=== PATIENT | female | born 1955 | race African-American/Black ===

== ENCOUNTER 2017-09-30 15:47 | Inpatient (IN) | payer MEDICAID, MEDICARE ==
[~2017-09-30 15:47] MED LIST: ISOVUE-370 76%-LOCM 1 ML ONE
--- NOTE | 2017-09-30 17:32 | RAD ---
PA AND LATERAL CHEST X-RAY 09/30/17 HISTORY: Cough since Chi. COMPARISON: None available. FINDINGS: There are suggestion of pulmonary nodules scattered within the lungs bilaterally, more numerous on th e left. There is also patchy parenchymal air space opacity in the posterior aspect of the left upper lobe. Findings may be related to atypical infectious process, but neoplastic process related to metas tatic disease is a possibility. There is prominence of the right hilar structures and trachea is also deviated to the right. Lymphadenopathy or mass in the right hilar region cannot be excluded. The roberto ology for deviation of the trachea is uncertain although mediastinal mass is a possibility. Thoracic aorta is ectatic. There is question of atelectasis left lung base with questionable tiny left pleural effusion. Degenerative changes are noted in the spine. IMPRESSION: 1. Bilateral nodular densities more numerous on the left with associated patchy parenchymal air space opacities and interstitial densities on the left predominantly in the left upper lobe. Findings could be related to atypical infectious process, but neoplastic process and metastatic disease is a consideration. 2. Deviation of the trachea to the right. There is also prominence of the right hilar structures . Mediastinal mass is a possibility, and nodular prominence of the right hilar region also could be r elated to either mass or lymphadenopathy. 3. CT scan thorax is recommended for further evaluation. POS: SUKHDEEP
[2017-09-30 18:46] LABS: Hemoglobin 11.7 g/dL (12.0-16.0); Mean Corpuscular HGB CONC 31.5 g/dL (32.0-36.0); Mean Corpuscular Hemoglobin 21.6 pg (27.0-31.0); Mean Corpuscular Volume 68.6 fl (81.0-99.0); Mean Platelet Volume 8.4 fL (7.4-10.4); Platelet Count 291 thou/uL (130-400); RBC Distribution Width 14.1 % (11.5-14.5); Red Blood Cell (RBC) Count 5.42 mill/uL (4.20-5.40); White Blood Cell (WBC) Count 5.7 thou/uL (4.8-10.8)
[2017-09-30 19:06] LABS: ALT (SGPT) 12 U/L (8-55); AST (SGOT) 15 U/L (5-34); Albumin 4.2 g/dL (3.4-4.8); Alkaline Phosphatase 77 U/L (40-150); Anion Gap 13 mmol/L (10-20); BUN (Urea Nitrogen) 15 mg/dL (9.8-20.1); Bilirubin, Total 0.2 mg/dL (0.2-1.2); Calc. Creatinine Clearance 0 mL/min (70-130); Calcium 9.9 mg/dL (7.8-10.44); Carbon Dioxide 23 mmol/L (23-31); Chloride 106 mmol/L (98-107); Estimated GFR-MDRD 83; Globulin 4.4 g/dL (2.4-3.5); Glucose 79 mg/dL (80-115); Potassium 4.6 mmol/L (3.5-5.1); Protein, Total 8.6 g/dL (6.0-8.3); Sodium 137 mmol/L (136-145)
[2017-09-30 19:12] LABS: INR-International Normal Ratio 1.1; Prothrombin Time 14.6 SEC (12.0-14.7)
[2017-09-30 19:13] LABS: PTT 29.8 SEC (22.9-36.1)
[2017-09-30 19:26] LABS: #Basophils 0.1 thou/uL (0.0-0.2); #Eosinphils 0.4 thou/uL (0.0-0.7); #Lymphocytes 2.2 thou/uL (1.20-3.40); #Monocytes 0.9 thou/uL (0.11-0.59); #Neutrophils 2.2 thou/uL (1.40-6.50); %Basophils 0.9 % (0.0-1.0); %Eosinophils 6.6 % (0.0-10.0); %Lymphocytes 39.3 % (21.0-51.0); %Monocytes 14.9 % (0.0-10.0); %Neutrophils 38.2 % (42.0-75.0); Hypochromia SLIGHT = 6-15 cells (100X) (0-5/hpf); MDiff Complete? YES; Microcytosis SLIGHT = 6-15 cells (100X) (0-5/hpf); PLT Morphology Comment Appears Adequate
[2017-09-30 19:58] LABS: Bilirubin Negative (Negative); Blood, Urine Negative (Negative); Clarity CLOUDY (Clear); Glucose, Urine (Dipstick) Negative (Negative); Leukocyte Large (Negative); Nitrite Negative (Negative); Protein, Urine (Dipstick) Trace mg/dL (Neg-Trace); Specific Gravity, Urine 1.027 (1.002-1.036)
[2017-09-30] MEDS ORDERED: Lorazepam 2 MG/ML VIAL ONE ×2 (19:59→21:56)
[2017-09-30 20:00] LABS: Bacteria/HPF None Seen HPF (None Seen); Squamous Epithelial 0-3 HPF (0-3)
[2017-09-30 20:01] LABS: Pathc Cast-AUWi Flag 4.21 (0-2.49)
[2017-09-30 20:10] LABS: Hyaline Casts/LPF 0-3 HYALINE CAST LPF (0-3 Hyaline); Manual Microscopic Reviewed? No Path Casts Seen; RBC/HPF 0-3 HPF (0-3)
--- NOTE | 2017-09-30 23:04 | CT ---
CTA CHEST WITH 3D VOLUME RENDERIN09/30/17 CLINICAL HISTORY: Cough. Abnormal chest radiograph. FINDINGS: No definite filling defect or pulmonary arteries to indicate acute pulmonary embolus. There are numer ous nodular opacities throughout each lung with rounded morphology. Component of calcification is see n within portion of these nodules. There is additional ground glass and interstitial opacification of the lungs bilaterally. No evidence of significant effusion or discrete pneumothorax. Areas of mass-l ilene consolidation are also present which contain calcification. There is no acute osseous abnormality . The thoracic aorta is normal in caliber. There are numerous calcified lymph nodes. IMPRESSION: Numerous bilateral pulmonary nodules, many of which contain calcification, as well as mass-like areas of consolidation containing internal calcification. Additional scattered areas of ground glass and i nterstitial prominence are present involving each lung. Considerations would include atypical infecti on and/or pneumoconiosis, given multifocal calcification as well as calcifications of regional lymph nodes. Given the extensive nodularity, malignancy is not excluded. Recommend pulmonary medicine consu ltation for further assessment. No large, acute pulmonary embolus. POS: JAZIEL
--- NOTE | 2017-10-01 06:37 | HP ---
DATE OF ADMISSION: 09/30/2017 CHIEF COMPLAINT: Shortness of breath and cough. HISTORY OF PRESENT ILLNESS: This is a 62-year-old -[place] female. She is a resident of a [facility], has a history of severe mental retardation since childbirth. She has been suffering with some cough and congestion for the past 1-2 weeks which progressively got worsened for the last 2 days and the long-term called the patient's sister, explaining about the worsening symptoms of the cough and she was having low saturations and they have checked and they called the EMS and the patient was brought to the ER. Patient was having some diarrhea for the past 2 days and was so watery in consis tency and associated with some blood mixed in the diarrhea. She denied having any fever, but she had a severe cough with productive sputum. The patient's mental status got worsened because of this. T he patient was seen in the ER, she had a chest x-ray, which showed evidence of some multifocal pneumo haim with tree-in-bud appearance more in the apical areas of the lung which is suspicious for a possib le tuberculosis. The patient's sister had latent TB in the past, but this patient was never evaluate d for tuberculosis, so the QuantiFERON test was ordered by ER and patient has been kept under isolati on until proven otherwise. The patient is seen, she was alert but completely disoriented, but this w hich is not the baseline according to the patient's sister. Patient's son is her medical power of at [facility] who is not present at this time. After discussing about the patient's prognosis, the patient' s family wants to decide by talking among themselves regarding the code status. PAST MEDICAL HISTORY: 1. Hypertension. 2. Mental retardation. PAST SURGICAL HISTORY: None. SOCIAL HISTORY: The patient lives at a long-term. No history of smoking. No history of alcohol. No history of illicit drug use. FAMILY HISTORY: No significant family history of coronary artery disease or any cancers in the famil y. HOME MEDICATIONS: None. ALLERGIES: No known drug allergies. REVIEW OF SYSTEMS: Unable to obtain any review of systems because of the patient's mental status and baseline mental status being mentally retarded and most of the history is obtained from the patient' s sister at the bedside. PHYSICAL EXAMINATION: VITAL SIGNS: Blood pressure 130/88, heart rate is 80, respiratory rate is 20, saturation is 95% on r oom air. GENERAL: The patient is moderately built and moderately nourished. She does not appear to be in acu te distress at this time. She is alert, oriented x3. HEENT: Atraumatic, normocephalic. PERRLA. Extraocular movements were intact. CARDIOVASCULAR: S1, S2 normal. No murmurs, rubs, or gallops. LUNGS: Bilateral air entry was equal, but showed diffuse wheezing bilaterally with no accessory use of muscles of respiration at this time. ABDOMEN: Soft, nontender, no guarding, no rebound tenderness. Bowel sounds normal. MUSCULOSKELETAL: No calf tenderness. No pedal edema. No joint tenderness, no joint swelling. SKIN: No cyanosis, no edema, no rash, no pallor. CENTRAL NERVOUS SYSTEM: Could not be done at this time as the patient is not cooperative. PSYCHIATRIC: Cannot be done as the patient is not cooperative. LYMPHATIC: No evidence of any generalized lymph nodes were noted. LABORATORY AND DIAGNOSTIC DATA: Currently, the labs are not available as the [employer] is down, but b ased on my discussion with the ER physician and glance at the labs done in the ER, there is no any re markable elements that I could recollect at this time, but patient had evidence of urinary tract infe ction with a UA being positive. Chest x-ray was reviewed along with the ER physician and has been re viewed by me showed an evidence of multifocal pneumonia diffusely spread with tree-in-bud appearance suggestive of infectious etiology. ASSESSMENT: 1. Multifocal pneumonia. 2. Acute urinary tract infection. 3. Yjfxndyf-yg-nrirte dehydration. 4. Infectious gastroenteritis with colitis. 5. History of mental retardation. PLAN: 1. Plan is to closely monitor this patient. We will need to start the patient on IV antibiotics wit h levofloxacin and vancomycin at this time and the patient will be started on DuoNeb and albuterol ne bs. Pulmonology needs to be consulted for further evaluation of her pulmonary problem. 2. Patient has evidence of severe diarrhea. Need to do a C. diff toxin assay to rule out a C. diff infection. 3. Patient has evidence of acute UTI, which could also be contributing to her worsening mental statu s. We will continue to monitor evaluate for the urine cultures. The patient has severe dehydration. We will continue the patient on IV fluids at this time at 100 mL an hour and will closely monitor t he hydration status. The patient has severe mental retardation and will be a challenge in dietary ap proach. We will closely monitor and will consult nutrition. If the patient refuses feeds may need t o be tube fed with a consent from the family. 4. DVT prophylaxis with Lovenox. I spent 75 minutes with this patient.
[2017-10-01 06:42] VITALS: BMI 27.3
[2017-10-01] MEDS ORDERED: Prevnar 13-Val Conj/PF 0.5 ML SYRINGE IM ONE (06:45)
[2017-10-01] MEDS: Sodium Chloride 0.45% 1,000 ML IV SCH ×2 (09:24→10:19)
[2017-10-01] MEDS ORDERED: cefTRIAXone\\ROCEPHIN 1 GM in Sodium Chloride 0.9% 100 ML IVPB SCH (09:45)
--- NOTE | 2017-10-01 09:53 | PDOC.PN ---
- Subjective Encounter Start Date: 10/01/17 Encounter Start Time: 09:51 Subjective: no distress - Objective MAR Reviewed: Yes Vital Signs & Weight: Vital Signs (12 hours) Temp Pulse Resp BP Pulse Ox 10/01/17 07:49 98.1 F 89 18 130/82 91 L 10/01/17 06:34 97.5 F L 102 H 18 96 10/01/17 04:29 97.4 F L 94 22 H 135/65 94 L 10/01/17 02:45 97.5 F L 102 H 18 165/93 H 96 Weight Weight 190 lb 4 oz Result Diagrams: 09/30/17 18:34 09/30/17 18:34 Phys Exam - Physical Examination Neck: no JVD Respiratory: clear to auscultation bilateral Cardiovascular: RRR, no significant murmur Gastrointestinal: soft, positive bowel sounds Musculoskeletal: edema present Dx/Plan (1) Atypical pneumonia Code(s): J18.9 - PNEUMONIA, UNSPECIFIED ORGANISM Status: Acute (2) UTI (urinary tract infection) Status: Acute Qualifiers: Encounter type: initial encounter (3) HTN (hypertension) Code(s): I10 - ESSENTIAL (PRIMARY) HYPERTENSION Status: Chronic (4) Mental retardation Code(s): F79 - UNSPECIFIED INTELLECTUAL DISABILITIES Status: Chronic - Plan iv antibx pending blood/ urine C&S -: cont pulmonology * .
[2017-10-01] MEDS: Azithromycin 500 MG in Sodium Chloride 0.9% 250 ML 250 ML IVPB SCH (10:13)
--- NOTE | 2017-10-01 13:27 | CON ---
DATE OF CONSULTATION: 10/01/2017 The patient is a 62-year-old mentally challenged -French female who has been in a state home for many years since age 7. She was there for the last 40 or 50 years. The last 10 years according to the sister who was at the bedside states that she has been placed in group homes, initially she w as in [place]. Now, she is in a correction with 4 other people in [place]. There is a caretak er who is at the bedside who states that she sees a physician at [facility]. That is her primary care physician. She sees no other doctors. She has had a cough now for several days, worsening symptoms. They called the nurse who was in charge of the above issues who told her to come to the hospital wh ere an x-ray was taken. The patient is not able to give any history. She has not been talking since age 7. CAT scan performed including a chest x-ray shows numerous bilateral pulmonary nodules, some of them are calcified, mass-like consolidation with internal calcification. Pulmonary is consulted regarding the abnormal CT and chest x-ray. She has never smoked, never had any alcohol. As noted, she has been in the long-term state home judith age 7. PAST MEDICAL HISTORY: 1. Otherwise, as per the history given by the cyber ops planner is pertinent for mental retardation. 2. Aphasic 3. Diabetes. 4. Hypertension. PAST SURGICAL HISTORY: Hysterectomy. MEDICATIONS: Chronic medication from the long-term apparently includes none at this stage. ALLERGIES: Apparently unknown. REVIEW OF SYSTEMS: Otherwise, difficult to obtain. PHYSICAL EXAMINATION: GENERAL: Her sister is feeding the patient. The patient appears to be in no distress. VITAL SIGNS: Sats 94% on 2 liters, temperature 98, blood pressure 146/92. CHEST: Chest revealed rhonchi. CARDIAC: Normal S1, S2, no gallops. ABDOMEN: Soft, no masses. LABORATORY: White count 5000, H&H 9 and 37, platelet count is 291. Electrolytes are normal. IMPRESSION: 1. Abnormal x-ray, multiple bilateral calcified and noncalcified nodules, unknown significance. 2. Mental retardation since age 7. 3. Aphasic. PLAN: She was started antibiotics. At this time, the best option is to try and get more history an old x-rays from [facility] if possible. Family tells me she is a full code to my surprise. It is uncle ar if we will be able to get any sputum on her because of her mental status. She remains afebrile. We will try and get old x-ray reports if possible. This is a consultation note, 70 minutes, 50% spent in direct patient care.
[2017-10-01 17:10] LABS: Legionella Urinary Ag Negative (Negative)
[2017-10-01 17:11] LABS: Strep pneumo Urine Ag NEGATIVE (NEGATIVE)
[2017-10-01] MEDS: cefTRIAXone\\ROCEPHIN 1 GM, Syringe 0.4 ML in Sterile Water 9.6 ML SLOW IVP SCH (20:42)
--- NOTE | 2017-10-01 23:48 | CON ---
DATE OF CONSULTATION: 10/01/2017 REASON FOR CONSULTATION: Respiratory symptoms, abnormal chest radiology studies. HISTORY OF PRESENT ILLNESS: A 62-year-old with a history of mental retardation who is a resident at a custodial in [place] and reportedly has developed cough with congestion for the past 2 weeks with worsening, also had some diarrhea associated with the above symptoms, sometimes with blood. No reported fever, no reported aspiration. No evidence to suggest pain in any area. Apparently, another person in the custodial where she was stays developed some respiratory symptoms as well, this person apparently recently, this person was treated at [facility]. PAST MEDICAL HISTORY: Hypertension, mental retardation. SOCIAL HISTORY: alf resident. Never a smoker. FAMILY HISTORY: Noncontributory. HOME MEDICATIONS: None. Here, she is receiving ceftriaxone and azithromycin. ALLERGIES: NONE. PHYSICAL EXAMINATION: VITAL SIGNS: Have been normal. She has been afebrile, some elevation in systolic blood pressure. SKIN: Normal, no lymphadenopathy. HEENT: Ocular movements conjugate. Oral cavity with few remaining teeth was hard to examine because of problems with getting her to cooperate. She really has a hard time following commands, is unable to understand the spoken word, and does not establish eye contact. NECK: Supple, no jugular venous distention. LUNGS: With symmetric air entry with faint crackles at the bases. HEART: S1, S2, regular rate without murmurs. ABDOMEN: Soft, not distended or tender. No ascites. No bladder distention. EXTREMITIES: No joint inflammatory activity. No edema. Pulses 1+ in dorsalis pedis. Moves extremities equally. Does not establish eye contact. Does not follow commands. Does not interact with examiner. LABORATORY DATA: Hemoglobin 11.7, MCV 68, WBC count is 5.7, platelets 291, neutrophil percentage 38, lymphocytes 39%, 14% monocytes, 6% eosinophils. INR 1.1. Chemistry normal except for glucose 79. The serum total protein was 8.6, calcium 9.9, globulin 4.4. Urinalysis, greater than 50 wbc's. Serology negative for Legionella pneumophila and Strep pneumonia antigen. The CT of the chest showed multiple calcified pulmonary masses. Some of them are pleural based coalescent and plaques, some of them are more distributed in the inner portions of the lung parenchyma, right and left side, fairly symmetric distribution of the calcification appears to be located in central location of those masses. ASSESSMENT: 1. Respiratory symptoms. 2. Multiple pulmonary masses most of them with calcification. DISCUSSION: No prior radiology studies were found, I looked in [facility] record, the only thing she has there is a mammogram. The nature of the lung findings are suggestive of chronic area of involvement with calcification, which would suggest granulomatous pneumonitis. Malignancy is not completely ruled out, but typically calcification and malignant nodules are not centrally located. A lot of those masses or pleural based and coalescent and plaques and the possibility of asbestosis would be considered. Fungal or mycobacterial infection would be felt to be less likely, sarcoidosis, not ruled out, but felt to be less likely in the absence of lymphadenopathy and no other findings in the parenchymal area to suggest sarcoid changes. Vasculitis is unlikely; hamartomas are usually solitary. If no other radiological study has been done elsewhere previously to compare, then probably would require biopsy of those lesions for diagnostic purposes. [facility]
[2017-10-02] MEDS: Lorazepam 0.5 MG TAB PO PRN (02:27)
--- NOTE | 2017-10-02 09:51 | PDOC.PN ---
- Subjective Encounter Start Date: 10/02/17 Encounter Start Time: 09:49 Subjective: alert,nonverbal - Objective MAR Reviewed: Yes Vital Signs & Weight: Vital Signs (12 hours) Temp Pulse Resp BP Pulse Ox 10/02/17 07:38 97.4 F L 104 H 14 163/90 H 95 10/02/17 04:00 98.9 F 98 20 162/97 H 95 10/02/17 01:28 98.7 F 100 20 174/103 H 96 Weight Weight 190 lb 4 oz Result Diagrams: 09/30/17 18:34 09/30/17 18:34 Phys Exam - Physical Examination Constitutional: NAD Neck: no JVD Respiratory: clear to auscultation bilateral Cardiovascular: RRR, no significant murmur Gastrointestinal: soft, non-tender, positive bowel sounds Musculoskeletal: no edema Dx/Plan (1) Atypical pneumonia Code(s): J18.9 - PNEUMONIA, UNSPECIFIED ORGANISM Status: Acute (2) UTI (urinary tract infection) Status: Acute Qualifiers: Encounter type: initial encounter (3) HTN (hypertension) Code(s): I10 - ESSENTIAL (PRIMARY) HYPERTENSION Status: Chronic (4) Mental retardation Code(s): F79 - UNSPECIFIED INTELLECTUAL DISABILITIES Status: Chronic - Plan await C&S, cont iv antibx -: appreciate ID, Pulmonologt input- discuss plans * .
[2017-10-02] MEDS: Azithromycin 500 MG in Sodium Chloride 0.9% 250 ML 250 ML IVPB SCH (10:15)
[2017-10-02] MEDS ORDERED: Sodium Chloride 3% (15 ML) NEB NEB SCH (12:15)
--- NOTE | 2017-10-02 12:22 | PRG ---
DATE OF SERVICE: 10/02/2017 SUBJECTIVE: Hawa Fernández is a 62-year-old mentally challenged female, who appears to be in no dist ress. OBJECTIVE: VITAL SIGNS: She is afebrile. Pulse is 104, sats 90% on room air, respirations 14, blood pressure i s 176/90. CHEST: Minimal rhonchi. CARDIAC: Normal S1 and S2, no gallops. ABDOMEN: Soft, no masses. IMPRESSION: Bilateral pulmonary infiltrates. Nodules of unknown significance. More than likely, th is is supposed to be chronic, possibly some superimposed pneumonia, though I doubt it is TB or fungus . She is essentially afebrile. We are still trying to get old x-rays if possible from the closer hospital she has been admitted. Co ntinue antibiotics. Unless we are able to get old x-rays, we will be obliged to proceed with a bronchoscopy though I am t rying to avoid doing this if possible. We will follow.
[2017-10-02] MEDS: cefTRIAXone\\ROCEPHIN 1 GM, Syringe 0.4 ML in Sterile Water 9.6 ML SLOW IVP SCH (22:33)
[2017-10-03] MEDS: Azithromycin 500 MG in Sodium Chloride 0.9% 250 ML 250 ML IVPB SCH (09:00)
[2017-10-03] MEDS: Lorazepam 0.5 MG TAB PO PRN ×2 (09:19→21:37)
--- NOTE | 2017-10-03 11:49 | PDOC.PN ---
- Subjective Encounter Start Date: 10/03/17 Encounter Start Time: 11:46 Subjective: nonverbal - Objective MAR Reviewed: Yes Vital Signs & Weight: Vital Signs (12 hours) Temp Pulse Resp BP Pulse Ox 10/03/17 08:15 98.1 F 100 16 160/99 H 93 L 10/03/17 04:00 97.4 F L 85 16 158/94 H 91 L 10/03/17 00:00 97.7 F 86 20 156/91 H 96 Weight Weight 190 lb 4 oz Result Diagrams: 09/30/17 18:34 09/30/17 18:34 Phys Exam - Physical Examination Neck: no JVD grossly clear Cardiovascular: RRR, no significant murmur Gastrointestinal: soft, positive bowel sounds Musculoskeletal: no edema Dx/Plan (1) Atypical pneumonia Code(s): J18.9 - PNEUMONIA, UNSPECIFIED ORGANISM Status: Acute (2) UTI (urinary tract infection) Status: Acute Qualifiers: Encounter type: initial encounter (3) HTN (hypertension) Code(s): I10 - ESSENTIAL (PRIMARY) HYPERTENSION Status: Chronic (4) Mental retardation Code(s): F79 - UNSPECIFIED INTELLECTUAL DISABILITIES Status: Chronic - Plan cont antibx -: rpt cxr, cbc, cmp -: discuss with pulmonology * .
[2017-10-03 12:47] LABS: ALT (SGPT) 12 U/L (8-55); AST (SGOT) 15 U/L (5-34); Albumin 3.7 g/dL (3.4-4.8); Alkaline Phosphatase 71 U/L (40-150); Anion Gap 11 mmol/L (10-20); BUN (Urea Nitrogen) 8 mg/dL (9.8-20.1); Band 3 % (5-11); Bilirubin, Total 0.2 mg/dL (0.2-1.2); Calc. Creatinine Clearance 115 mL/min (70-130); Calcium 9.5 mg/dL (7.8-10.44); Carbon Dioxide 21 mmol/L (23-31); Chloride 108 mmol/L (98-107); Eosinophils 4 % (0-10); Estimated GFR-MDRD Greater than 90; Globulin 4.3 g/dL (2.4-3.5); Glucose 97 mg/dL (80-115); Hemoglobin 11.4 g/dL (12.0-16.0); Lymphocytes 33 % (21-51); MDiff Complete? YES; Mean Corpuscular HGB CONC 31.2 g/dL (32.0-36.0); Mean Corpuscular Hemoglobin 21.6 pg (27.0-31.0); Mean Corpuscular Volume 69.1 fl (81.0-99.0); Mean Platelet Volume 8.6 fL (7.4-10.4); Monocytes 7 % (0-10); Neutrophil 50 % (42-75); Platelet Count 288 thou/uL (130-400); Potassium 4.1 mmol/L (3.5-5.1); RBC Distribution Width 14.3 % (11.5-14.5); Red Blood Cell (RBC) Count 5.28 mill/uL (4.20-5.40); Sodium 136 mmol/L (136-145); White Blood Cell (WBC) Count 5.7 thou/uL (4.8-10.8)
--- NOTE | 2017-10-03 13:06 | RAD ---
SINGLE VIEW OF THE CHEST: INDICATION: History of pneumonia. COMPARISON: CTA dated 09/30/17. FINDINGS: The diffuse reticular nodularity and scattered confluent lung masses are largely stable. Cardiomegal y persists. Scarring and other chronic lung changes are similar. No pleural effusion or pneumothora x is evident. Chronic osseous change is similar. IMPRESSION: Stable exam. POS: JAZIEL
--- NOTE | 2017-10-03 19:05 | PRG ---
DATE OF SERVICE: 10/03/2017 SUBJECTIVE: Hawa Fernández is nonverbal. She has no distress when I evaluated her today. OBJECTIVE: VITAL SIGNS: She is afebrile, heart rates in the 80s-100s, respiratory rates in the teens, blood pre ssure was 160/99. LUNGS: Clear. HEART: Regular rhythm. No murmurs heard. ABDOMEN: Soft and nontender. EXTREMITIES: Without any edema. She appeared to be moving all of her extremities equally. LABORATORY DATA: White count 5.7, hemoglobin 11.7, platelets 291. Electrolytes were normal. She lopez d no new lab today. IMPRESSION: Atypical pneumonia. PLAN: Microbiology has been reviewed. The respiratory virus panel was positive for human metapneumo virus. We will continue to follow. No procedures are planned at this time from a diagnostic standpoint with her abnormal chest radiograph.
[2017-10-03] MEDS: cefTRIAXone\\ROCEPHIN 1 GM, Syringe 0.4 ML in Sterile Water 9.6 ML SLOW IVP SCH (20:40)
[2017-10-03] MEDS: Acetaminophen 325 MG TAB PO PRN (21:37)
--- NOTE | 2017-10-04 12:28 | PDOC.PN ---
- Subjective Encounter Start Date: 10/04/17 Encounter Start Time: 12:26 Patient seen and examined, sitter at bedside as patient was getting a bit agitated earlier, no new issues per nursing staff, no family at bedside. - Objective Vital Signs & Weight: Vital Signs (12 hours) Temp Pulse Resp BP BP Pulse Ox 10/04/17 08:00 98.2 F 96 18 152/102 H 96 10/04/17 05:00 97.6 F 83 18 144/89 H 97 10/04/17 02:39 22 H Weight Weight 190 lb 4 oz I&O: 10/03/17 10/04/17 10/05/17 06:59 06:59 06:59 Intake Total 30 Balance 30 Result Diagrams: 10/03/17 12:15 10/03/17 12:15 Phys Exam - Physical Examination Constitutional: NAD HEENT: PERRLA, moist MMs Neck: no nodes, no JVD, supple coarse breath sounds Cardiovascular: RRR, no significant murmur, no rub Gastrointestinal: soft, non-tender, no distention Musculoskeletal: pulses present, edema present (trace) Neurological: moves all 4 limbs aphasic Dx/Plan (1) Atypical pneumonia Code(s): J18.9 - PNEUMONIA, UNSPECIFIED ORGANISM Status: Acute (2) UTI (urinary tract infection) Status: Acute Qualifiers: Encounter type: initial encounter (3) HTN (hypertension) Code(s): I10 - ESSENTIAL (PRIMARY) HYPERTENSION Status: Chronic (4) Mental retardation Code(s): F79 - UNSPECIFIED INTELLECTUAL DISABILITIES Status: Chronic - Plan * sputum positive for human metapneumo virus as well as rhinovirus * ID and pulmonary following * will start duonebs for now PRN * cont abx * further management per subspecialists * no family at bedside.
[2017-10-04] MEDS: Azithromycin 500 MG in Sodium Chloride 0.9% 250 ML 250 ML IVPB SCH (12:29)
--- NOTE | 2017-10-04 14:47 | PRG ---
DATE OF SERVICE: 10/04/2017 OBJECTIVE: VITAL SIGNS: Ms. Hawa Fernández is afebrile. Heart rate is in the 90s, respiratory rate is 18, oxim etry is 96% on room air, blood pressure is 144/89 earlier, 152/102 at 8:00. There has been no change in her exam otherwise. She is not able to verbally communicate needs. PLAN: Continue antimicrobial therapy. Further care per Dr. Patrick when he returns in the morning.
[2017-10-04] MEDS: cefTRIAXone\\ROCEPHIN 1 GM, Syringe 0.4 ML in Sterile Water 9.6 ML SLOW IVP SCH (20:54)
[2017-10-04] MEDS: Lorazepam 0.5 MG TAB PO PRN (20:55)
[2017-10-04] MEDS: Acetaminophen 325 MG TAB PO PRN (20:55)
--- NOTE | 2017-10-05 09:02 | PRG ---
DATE OF SERVICE: 10/05/2017 This morning she is awake, alert, responsive. PHYSICAL EXAMINATION: VITAL SIGNS: Afebrile, sats are 92% on room air, respiration 20, blood pressure 147/91. CHEST: Chest reveals decreased breath sounds, no wheezing. CARDIAC: Normal S1, S2. No gallop. ABDOMEN: Soft, no masses. Abnormal x-ray with multiple calcifications, bilateral scarring. Most of this appears to be chronic to me. Unfortunately we have no old x-ray for comparison. Unfortunately, the patient not coughing a ny sputum. At this stage my best option at this time is to switch her to oral antibiotic. I will follow up with her primary care physician. I suggest getting serial chest x-rays every 3 months unless she becomes symptomatic with high fever, chills, sweats, chronic cough. Hold off any further workup. The patient is clearly severely mentally challenged. She is aphasic.
[2017-10-05] MEDS ORDERED: Sodium Chloride 3% (15 ML) NEB NEB SCH (10:15)
[2017-10-05] MEDS: Doxycycline 100 MG CAP PO SCH ×2 (10:23→20:09)
--- NOTE | 2017-10-05 21:44 | PDOC.PN ---
- Subjective Encounter Start Date: 10/05/17 Encounter Start Time: 15:00 -: non-verbal Patient seen and examined. Appears comfortable. Sitter at bedside. No overnight events - Objective MAR Reviewed: Yes Vital Signs & Weight: Vital Signs (12 hours) Temp Pulse Resp BP Pulse Ox 10/05/17 20:00 97.7 F 99 20 147/93 H 92 L 10/05/17 10:33 84 20 95 Weight Weight 190 lb 4 oz I&O: 10/04/17 10/05/17 10/06/17 06:59 06:59 06:59 Intake Total 30 Balance 30 Result Diagrams: 10/06/17 04:40 10/06/17 04:40 Phys Exam - Physical Examination Constitutional: NAD Respiratory: no wheezing Scat rhonchi Cardiovascular: RRR, no rub Gastrointestinal: soft, positive bowel sounds Musculoskeletal: no edema Neurological: moves all 4 limbs Dx/Plan - Plan DVT proph w/SCDs IMPRESSION: 1. Atypical Pneumonia/Multiple pulmonary nodules 2. Mental retardation 3. HTN 4. Acute Viral infection - Rhinovirus/Human Metapneumovirus 5. ?UTI - no urine cultures sent on admission PLAN: * Pulmonary/ID following * Cont Atbx * On Isolation * Cont to monitor Review of Systems - Medications/Allergies Allergies/Adverse Reactions: Allergies Allergy/AdvReac Type Severity Reaction Status Date / Time No Known Drug Allergies Allergy Verified 10/01/17 05:31 Medications: Current Medications Acetaminophen (Tylenol) 650 mg PO Q6H PRN PRN Reason: PAIN/FEVER Last Admin: 10/04/17 20:55 Dose: 650 mg Albuterol/Ipratropium (Duoneb) 3 ml NEB [id number] PRN PRN Reason: SOB &/or Wheezing Last Admin: 10/04/17 19:09 Dose: 3 ml Doxycycline Hyclate (Vibramycin) 100 mg PO BID ROXANE Stop: 10/10/17 09:01 Last Admin: 10/05/17 20:09 Dose: 100 mg Lorazepam (Ativan) 0.25 mg PO Q6H PRN PRN Reason: ANXIETY/RESTLESSNESS Last Admin: 10/04/17 20:55 Dose: 0.25 mg Sodium Chloride (Flush - Normal Saline) 10 ml IVF PRN PRN PRN Reason: Saline Flush Last Admin: 10/05/17 10:24 Dose: 10 ml
[2017-10-05] MEDS: Lorazepam 0.5 MG TAB PO PRN (22:02)
[2017-10-06] MEDS: Acetaminophen 325 MG TAB PO PRN (02:23)
[2017-10-06 05:35] LABS: Eosinophils 8 % (0-10); Hemoglobin 11.8 g/dL (12.0-16.0); Hypochromia SLIGHT = 6-15 cells (100X) (0-5/hpf); Lymphocytes 34 % (21-51); MDiff Complete? YES; Mean Corpuscular HGB CONC 31.2 g/dL (32.0-36.0); Mean Corpuscular Hemoglobin 21.2 pg (27.0-31.0); Mean Corpuscular Volume 68.1 fl (81.0-99.0); Mean Platelet Volume 8.1 fL (7.4-10.4); Microcytosis SLIGHT = 6-15 cells (100X) (0-5/hpf); Monocytes 17 % (0-10); Neutrophil 41 % (42-75); Platelet Count 339 thou/uL (130-400); RBC Distribution Width 14.4 % (11.5-14.5); Red Blood Cell (RBC) Count 5.56 mill/uL (4.20-5.40); White Blood Cell (WBC) Count 5.7 thou/uL (4.8-10.8)
[2017-10-06 05:37] LABS: Albumin 3.8 g/dL (3.4-4.8); Anion Gap 14 mmol/L (10-20); BUN (Urea Nitrogen) 12 mg/dL (9.8-20.1); BUN/Creatinine Ratio 16.44; Calc. Creatinine Clearance 110 mL/min (70-130); Calcium 9.7 mg/dL (7.8-10.44); Carbon Dioxide 21 mmol/L (23-31); Chloride 105 mmol/L (98-107); Estimated GFR-MDRD Greater than 90; Glucose 84 mg/dL (80-115); Phosphorus 4.2 mg/dL (2.3-4.7); Potassium 4.1 mmol/L (3.5-5.1); Sodium 136 mmol/L (136-145)
[2017-10-06] MEDS: Doxycycline 100 MG CAP PO SCH (08:45)
--- NOTE | 2017-10-06 08:52 | PRG ---
DATE OF SERVICE: 10/06/2017 This morning, awake, alert and responsive. She has remained afebrile for multiple days. PHYSICAL EXAMINATION: VITAL SIGNS: Sats on room air 97, blood pressure 160/99, respirations 18, aphasic. CHEST: No wheezing, crackles. CARDIAC: Normal S1, S2, no gallops. LABORATORY: Unremarkable. Abnormal x-ray; bilateral infiltrates with evidence of calcification status post prior healed disease . No old x-ray for comparison. PLAN: [facility]. Supportive care. Pulmonary will follow at a [facility]. She can follow up with her primary physician at [facility].
--- NOTE | 2017-10-06 12:04 | DIS ---
DATE OF ADMISSION: 10/01/2017 DATE OF DISCHARGE: 10/06/2017 PRIMARY CARE PROVIDER: Unknown. DISCHARGE DISPOSITION: Home. FINAL DIAGNOSES: Atypical pneumonia, mental retardation, primary hypertension and pulmonary nodules. DISCHARGE MEDICATION: Doxycycline 100 mg p.o. b.i.d. for 7 more days. ALLERGIES: None. CODE STATUS: FULL. PENDING AT THE TIME OF DISCHARGE: Nothing. HOSPITAL COURSE: The patient admitted through [facility] to [facility] with shortness of breath and cough. She was found to have an abnormal chest x-ray. Her initia l white count was normal at 5.7. Follow ups were also normal on 10/03/2017 to 10/06/2017. Her metab olic profiles unremarkable. Serology was negative for legionella pneumophila and strep pneumonia. C onsultation was obtained with Infectious Disease, Dr. Ash Torres, Dr. Bebo Patrick, Pulmonology. She was initially treated with IV antibiotics. C. diff toxin was negative. Respiratory virus panel was positive for human metapneumovirus and rhinovirus. Patient currently chest is clear to exam. Afebr ile. Vital signs stable. She remains nonverbal as she has been ever since admission and is chronica lly that way, room air saturation is 97% of O2. She is being discharged home. PROCEDURES: None. She is being discharged on antibiotics and has been advised to have find PCP and be seen in 7 days fo r followup.
[2017-10-06 13:28] VITALS: BP 154/98; TEMP 98.8
== END 2017-10-06 13:56 | disposition home or self-care (01) | DRG 194 ==
LOC: ERS 15:47 → T4-B 10-01 01:13
PROVIDERS: ADMIT Family Medicine; ATTEND Family Medicine
DX: J18.9 Pneumonia, unspecified organism (principal); F72 Severe intellectual disabilities; R47.01 Aphasia; E86.0 Dehydration; K52.89 Other specified noninfective gastroenteritis and colitis; R91.8 Other nonspecific abnormal finding of lung field; B97.89 Other viral agents as the cause of diseases classified elsewhere
CPT/HCPCS: 36415; 71045; 71046; 71275; 80053; 80069; 81003; 81015; 83605; 83735; 85025; 85610; 85730; 86480; 86850; 86900; 86901; 87324; 87449; 87633; 87899; 90471; 90670; 93306; 94640; 96361; 96365; 96366; 96368; 96375; 96376; A4216; G0009; J0456; J0696; J1956; J2060; J3370; J7050; J7620

== ENCOUNTER 2021-06-18 09:51 | Emergency (ER) | payer MEDICARE, MEDICAID ==
[2021-06-18 10:38] LABS: Hemoglobin 11.9 g/dL (12.0-16.0); Mean Corpuscular HGB CONC 30.5 g/dL (32.0-36.0); Mean Corpuscular Hemoglobin 22.3 pg (27.0-31.0); Mean Corpuscular Volume 72.9 fL (78.0-98.0); Mean Platelet Volume 8.2 fL (7.4-10.4); Platelet Count 189 thou/uL (130-400); RBC Distribution Width 13.1 % (11.5-14.5); Red Blood Cell (RBC) Count 5.33 mill/uL (4.20-5.40); White Blood Cell (WBC) Count 5.6 thou/uL (4.8-10.8)
[2021-06-18 10:52] LABS: ALT (SGPT) 17 U/L (8-55); AST (SGOT) 19 U/L (5-34); Albumin 3.8 g/dL (3.4-4.8); Alkaline Phosphatase 61 U/L (40-110); Anion Gap 12 mmol/L (10-20); BUN (Urea Nitrogen) 9 mg/dL (9.8-20.1); Bilirubin, Total 0.3 mg/dL (0.2-1.2); Calc. Creatinine Clearance 0 mL/min (70-130); Calcium 9.2 mg/dL (7.8-10.44); Carbon Dioxide 24 mmol/L (23-31); Chloride 106 mmol/L (98-107); Globulin 3.6 g/dL (2.4-3.5); Glucose 105 mg/dL (80-115); Potassium 3.8 mmol/L (3.5-5.1); Protein, Total 7.4 g/dL (5.8-8.1); Sodium 138 mmol/L (136-145)
[2021-06-18 11:10] LABS: Band 3 % (5-11); Eosinophils 3 % (0-10); Hypochromia SLIGHT = 6-15 cells (100X) (0-5/hpf); Lymphocytes 52 % (21-51); MDiff Complete? YES; Microcytosis SLIGHT = 6-15 cells (100X) (0-5/hpf); Monocytes 14 % (0-10); Neutrophil 28 % (42-75); Platelet Morphology Comment Appears Adequate; Polychromasia SLIGHT = 2-3 cells (100X) (0-2/hpf)
[2021-06-18 13:52] LABS: Magnesium 1.8 mg/dL (1.6-2.6)
[2021-06-19 00:58] LABS: SARS-CoV-2 PCR by NAA DETECTED (NotDetected)
== END 2021-06-18 15:33 | disposition home or self-care (01) ==
LOC: ERS 09:51
DX: U07.1 COVID-19 (principal)
CPT/HCPCS: 71045; 83735; U0003; U0005; 36415; 80053; 84443; 85025

== ENCOUNTER 2022-10-16 10:58 | Outpatient (CLI) | payer MEDICARE, MEDICAID | END 2022-10-16 10:59 | disposition home or self-care (01) | LOC: BICMAMMO 10:58 | PROVIDERS: ATTEND Family Medicine | DX: Z12.31 Encounter for screening mammogram for malignant neoplasm of breast (principal) | CPT/HCPCS: 77063; 77067 ==

== ENCOUNTER 2023-01-28 16:56 | Emergency (ER) | payer MEDICARE, MEDICAID ==
[2023-01-28 18:08] LABS: #Eosinphils 0.2 thou/uL (0.0-0.7); #Monocytes 1.1 thou/uL (0.11-0.59); #Neutrophils 5.6 thou/uL (1.40-6.50); %Basophils 0.4 % (0.0-1.0); %Eosinophils 1.8 % (0.0-10.0); %Lymphocytes 27.9 % (21.0-51.0); %Monocytes 11.2 % (0.0-10.0); %Neutrophils 58.3 % (42.0-75.0); Hematocrit 34.5 % (36.0-47.0); Hemoglobin 10.7 g/dL (12.0-16.0); Mean Corpuscular Hemoglobin 21.7 pg (27.0-31.0); Mean Platelet Volume 9.6 fL (7.4-10.4); Platelet Count 371 10x3/uL (130-400); RBC Distribution Width 16.1 % (11.5-14.5); Red Blood Cell (RBC) Count 4.93 mill/uL (4.20-5.40); White Blood Cell (WBC) Count 9.6 10x3/uL (4.8-10.8)
[2023-01-28 18:32] LABS: Anisocytosis SLIGHT = 6-15 cells HPF (0-5); CellaVision Operator ID LAB.MJL; Hypochromia SLIGHT = 6-15 cells HPF (0-5); Microcytosis SLIGHT = 6-15 cells HPF (0-5); Platelet Adequacy Comment Platelets Normal; Polychromasia SLIGHT = 2-3 cells HPF (0-2); Target Cells SLIGHT = 2-5 cells HPF (0-1)
[2023-01-28 18:38] LABS: ALT (SGPT) 16 U/L (8-55); AST (SGOT) 16 U/L (5-34); Alkaline Phosphatase 102 U/L (40-110); Anion Gap 14 mmol/L (10-20); BUN (Urea Nitrogen) 11 mg/dL (9.8-20.1); Bilirubin, Total 0.4 mg/dL (0.2-1.2); CK (CPK) 96 U/L (29-168); Calc. Creatinine Clearance 0 mL/min (70-130); Calcium 9.5 mg/dL (7.8-10.44); Carbon Dioxide 23 mmol/L (23-31); Chloride 105 mmol/L (98-107); Estimated GFR 71; Glucose 111 mg/dL (80-115); Potassium 3.8 mmol/L (3.5-5.1); Sodium 138 mmol/L (136-145)
[2023-01-28] MEDS ORDERED: cefTRIAXone (ROCEPHIN) 1 GM VIAL ONE (18:50)
[2023-01-28 19:00] LABS: Bacteria/HPF None Seen HPF (None Seen); Bilirubin Negative (Negative); Blood, Urine Negative (Negative); CAUTI Indications for Culture Dysuria,urgency,freq; Clarity Clear (Clear); Glucose, Urine (Dipstick) Normal (Negative); Ketone, Urine Negative (Negative); Leukocyte Negative Leu/uL (Negative); Nitrite Negative (Negative); Protein, Urine (Dipstick) Negative (Neg-Trace); RBC/HPF 0-3 HPF (0-3); Specific Gravity, Urine 1.003 (1.002-1.036); Squamous Epithelial None Seen HPF (0-3); Urobilinogen Normal mg/dL (Less than 2); WBC/HPF 0-3 HPF (0-3); pH, Urine 6.5 (5.0-9.0)
[2023-01-28 19:01] LABS: Urine Culture Reflex No No
[2023-01-28] MEDS ORDERED: hydrALAZINE 20 MG/ML VIAL ONE ×2 (19:30→20:20)
== END 2023-01-28 21:26 | disposition home or self-care (01) ==
LOC: ERS 16:56
DX: R53.1 Weakness (principal); I10 Essential (primary) hypertension
CPT/HCPCS: 70450; 71045; 80053; 81001; 82550; 83605; 84484; 85025; 87040; 87086; 93005; J0360; 36415; 96365; 96375; 96376; J0696

== ENCOUNTER 2024-03-30 09:39 | Emergency (ER) | payer MEDICARE, MEDICAID ==
[2024-03-30 10:28] LABS: #Basophils 0.03 10x3/uL (0.0-0.2); %Basophils 0.3 % (0.0-1.0); %Eosinophils 1.3 % (0.0-10.0); %Lymphocytes 34.4 % (21.0-51.0); %Monocytes 13.1 % (0.0-10.0); %Neutrophils 50.7 % (42.0-75.0); Hematocrit 37.2 % (36.0-47.0); Hemoglobin 11.2 g/dL (12.0-16.0); Mean Corpuscular HGB CONC 30.1 g/dL (32.0-36.0); Mean Corpuscular Hemoglobin 21.8 pg (27.0-31.0); Mean Corpuscular Volume 72.4 fL (78.0-98.0); Mean Platelet Volume 9.7 fL (7.4-10.4); Platelet Count 277 10x3/uL (130-400); RBC Distribution Width 16.4 % (11.5-14.5); Red Blood Cell (RBC) Count 5.14 mill/uL (4.20-5.40)
[2024-03-30 10:42] LABS: ALT (SGPT) 9 U/L (8-55); AST (SGOT) 11 U/L (5-34); Albumin 3.8 g/dL (3.4-4.8); Alkaline Phosphatase 75 U/L (40-110); Anion Gap 15 mmol/L (10-20); BUN (Urea Nitrogen) 21 mg/dL (9.8-20.1); Bilirubin, Total 0.3 mg/dL (0.2-1.2); Calc. Creatinine Clearance 0 mL/min (70-130); Calcium 9.9 mg/dL (7.8-10.44); Carbon Dioxide 21 mmol/L (23-31); Chloride 114 mmol/L (98-107); Estimated GFR 47; Globulin 3.9 g/dL (2.4-3.5); Glucose 113 mg/dL (80-115); Lipase 7 U/L (8-78); Potassium 3.6 mmol/L (3.5-5.1); Protein, Total 7.7 g/dL (5.8-8.1); Sodium 146 mmol/L (136-145)
[2024-03-30 10:47] LABS: Troponin I Less than 0.010 ng/mL (< 0.028)
== END 2024-03-30 11:46 | disposition home or self-care (01) ==
LOC: ERS 09:39
DX: R19.7 Diarrhea, unspecified (principal); N17.9 Acute kidney failure, unspecified
CPT/HCPCS: 36415; 80053; 83690; 84484; 85025; 96360

== ENCOUNTER 2025-02-24 13:07 | Outpatient (CLI) | payer MEDICARE, MEDICAID | END 2025-02-24 13:08 | disposition home or self-care (01) | LOC: BICMAMMO 13:07 | PROVIDERS: ATTEND Family Medicine | DX: Z12.31 Encounter for screening mammogram for malignant neoplasm of breast (principal); Z78.0 Asymptomatic menopausal state; Z91.89 Other specified personal risk factors, not elsewhere classified | CPT/HCPCS: 77063; 77067; 77080 ==